=== PATIENT | male | born 1975 | race Caucasian/White ===

== ENCOUNTER 2016-05-09 14:32 | Emergency (ER) | payer OTHER ==
[~2016-05-09] VITALS: Ht 177.8 cm; Wt 110.0 kg
[2016-05-09 14:34] VITALS: BP 162/89; PULSE 92; RESP 14; TEMP 97.8; O2SAT 96
[2016-05-09] MEDS ORDERED: NAPR500T PO (16:26)
--- NOTE | 2016-05-09 16:26 | RADRPT ---
EXAM DATE/TIME: 05/09/2016 15:44 [place] COMPARISON: No previous studies available for comparison. INDICATIONS : Right Knee Swelling and Pain, No Known Trauma. MEDICAL HISTORY : None. SURGICAL HISTORY : None. ENCOUNTER: Initial ACUITY: 1 day PAIN SCORE: 8/10 LOCATION: Right Knee. FINDINGS: Four view examination of the right knee demonstrates no evidence of fracture or dislocation. Bony mi neralization is normal. The articular surfaces are intact. The suprapatellar soft tissues have a no rmal configuration. CONCLUSION: Negative for fracture or dislocation. Followup in 7-10 days is suggested if symptoms persist. Antione Vaughn MD FACR on May 09, 2016 at 16:24 Board Certified Radiologist. This report was verified electronically.
[2016-05-09] MEDS ORDERED: KETOROLAC TROMETHAMINE 60 MG/2 ML (IM) VIAL IM ONE (16:30)
--- NOTE | 2016-05-09 16:31 | PD ---
HPI Chief Complaint: Pain: Acute or Chronic Time Seen by Provider: 16:26 Travel History International Travel<30 days: No Contact w/Intl Traveler<30days: No Traveled to known affect area: No History of Present Illness HPI 40-year-old male presents to the emergency department for evaluation of right knee swelling and pain for 1 day. Patient denies any injury or trauma to his knee. States that when he woke up this morning his knee was swollen and painful. States that yesterday he did lay down some floor trim and was on his hands and knees for a little while. Denies any previous injury or trauma to this knee. States that he took some ibuprofen earlier today with minimal improvement of symptoms. Denies fever, chills, nausea, vomiting, nose or tingling, weakness. No other complaints. [facility] Social History Tobacco Use: No Allergies-Medications (Allergen,Severity, Reaction): Coded Allergies: No Known Allergies (Unverified , 05/09/16) Reported Meds & Prescriptions Reported Meds & Active Scripts Active No Active Prescriptions or Reported Medications Review of Systems Except as stated in HPI: all other systems reviewed are Neg Physical Exam Narrative GENERAL: Well-nourished and well-developed pleasant male patient in no acute distress who is nontoxic appearing. SKIN: Warm and dry. HEAD: Normocephalic and atraumatic. EYES: No injection, drainage, or hyphema noted. PERRLA. EOMI. ENT: No nasal drainage noted. Oropharynx is clear. NECK: Supple and the trachea is midline. CARDIOVASCULAR: Regular rate and rhythm. RESPIRATORY: Breath sounds are equal bilaterally with no accessory muscle use, wheezing, rhonchi, or crackles. MUSCULOSKELETAL: Swelling to anterior right knee with mild effusion, mild tenderness to palpation. Full range of motion of right knee, negative AP drawer sign, negative Carroll's test. No obvious deformities, cyanosis, or ecchymosis is present throughout the upper and lower extremities. Patient has full range of motion without any signs of neurovascular compromise. NEUROLOGICAL: Awake, alert, and oriented. Normal speech and gait. Cranial nerves are grossly intact. Data Data Last Documented VS Vital Signs Date Time Temp Pulse Resp B/P Pulse Ox O2 Delivery O2 Flow Rate FiO2 05/09/16 14:34 97.8 92 14 162/89 96 Orders Knee, Complete (4vws) (05/09/16 15:35) Ketorolac Inj (Toradol Inj) (05/09/16 16:30) Splint Or Brace Apply/Monitor (05/09/16 16:25) [facility] Medical Decision Making Medical Screen Exam Complete: Yes Emergency Medical Condition: Yes Differential Diagnosis Sprain versus effusion versus ligamentous injury versus other Narrative Course 40-year-old male presents to the emergency room for evaluation of right knee swelling. Patient is afebrile, vital signs are stable. No injury or trauma to the knee. Patient's right lower chest when he is neurovascularly intact. X- ray imaging of the right knee is negative for any acute abnormalities. Patient' s right knee is placed in an Javier wrap and he is given Toradol 60 mg IM here in the ED. Discussed rest, ice, elevation and compression. Advised follow-up with his PCP or an orthopedist if his symptoms persist. Patient verbalizes understanding and agreement with treatment plan. Diagnosis Primary Impression: Effusion of right knee Additional Instructions: Javier wrap. Elevate right knee. Apply ice for 20 minutes on, 20 minutes off. Take medication as prescribed with food and a full glass of water. Follow-up with your Primary Care Physician. Return to the ED for any acute worsening of symptoms. Med/Other Pt SpecificInfo: Prescription(s) given Scripts Naproxen 500 Mg [id number] Mg PO BID 7 Days Ref 0 Prov:Demetrius Kinsey MD 05/09/16 Disposition: 01 DISCHARGE HOME Condition: Stable Nyla Malone May 09, 2016 16:31
== END 2016-05-09 17:33 | disposition home or self-care (01) ==
LOC: NEPB 14:32
DX: M25.461 Effusion, right knee (principal)
CPT/HCPCS: 73564; 96372; 99283; J1885